=== PATIENT | female | born 1980 | race Caucasian/White ===

== ENCOUNTER → 2019-08-31 | Outpatient (CLI) | payer OTHER ==
--- NOTE | 2019-08-31 14:56 | Diagnostic Imaging Report ---
Ultrasound of the Kidneys, 08/31/2019. Clinical History: Hematuria. Discussion: Sonographic evaluation of the kidneys is performed. Right kidney: 11.2 cm in length, normal in size, with cortical thickness of 2.0 cm. Normal cortical echogenicity. No mass. No shadowing calculus. No hydronephrosis. Left kidney: 11.5 cm in length, normal in size, with cortical thickness of 2.1 cm. Normal cortical echogenicity. No mass. No shadowing calculus. No hydronephrosis. Limited Doppler evaluation demonstrates normal color Doppler flow within bilateral renal ibrahima. Fluid: No perinephric fluid. Bladder: Unremarkable. Bilateral ureteral jets are visualized. IMPRESSION: Normal ultrasound of the bilateral kidneys. Signed by: Eliot Ward MD on 08/31/2019 2:53 PM
--- NOTE | 2019-08-31 15:13 | Diagnostic Imaging Report ---
HISTORY : Pelvic pressure, hematuria COMPARISON : None Comment: Ultrasound examination of the pelvis was performed transabdominally and transvaginally. The uterus is surgically absent. The right ovary is not visualized secondary to overlying bowel gas. The left ovary measures 3.4 x 1.8 x 2.4 cm. The left ovary demonstrates normal color Doppler flow/ There is no evidence of fluid in the cul-de-sac. IMPRESSION : 1. Status post hysterectomy. 2. Normal left ovary. Right ovary not visualized likely secondary to overlying bowel gas. Signed by: Eliot Ward MD on 08/31/2019 3:10 PM
== END ==
LOC: US 13:15
PROVIDERS: ATTEND Obstetrics & Gynecology
DX: R10.2 Pelvic and perineal pain (principal); R31.9 Hematuria, unspecified
CPT/HCPCS: 76770; 76830; 76856